=== PATIENT | female | born 1980 | race Two or more races ===

== ENCOUNTER 2019-10-26 17:07 | Emergency (ER) ==
[~2019-10-26] VITALS: Ht 162.6 cm; Wt 85.9 kg
[~2019-10-26 17:07] MED LIST: CHOL10002 PO; DICY20TA3 PO; GLYB2.5T2 PO; GLYB5TAB3 PO; HYDR-3240 PO; HYDR-3241 PO; HYOS0.1268 PO; LEVO112T4 PO; LEVO25TA4 PO; ONDA4TAB13 SL; PANT40GR PO; PANT40TA5 PO; PREN1TAB56 PO; SUMA50TA4 PO; VILA40TA PO
[2019-10-26 17:43] LABS: BASOPHILS # (AUTO) 0.04 x10^3/uL (0-0.1); BASOPHILS % (AUTO) 0 % (0-1); EOSINOPHILS # (AUTO) 0.28 x10^3/uL (0-0.4); EOSINOPHILS % (AUTO) 4 % (1-7); LYMPHOCYTES # (AUTO) 3.31 x10^3/uL (1-3.4); LYMPHOCYTES % (AUTO) 42 % (22-44); MD NO; MEAN CORPUSCULAR HEMOGLOBIN 33.5 pg (27.0-34.8); MEAN CORPUSCULAR HGB CONC 33.1 g/dL (32.4-35.8); MEAN CORPUSCULAR VOLUME 101.3 fL (80-100); MEAN PLATELET VOLUME 8.9 fL (7.4-10.4); MONOCYTES # (AUTO) 0.37 x10^3/uL (0.2-0.8); MONOCYTES % (AUTO) 5 % (2-9); NEUTROPHILS % (AUTO) 49 % (42-75); PLATELET COUNT 258 x10^3/uL (130-400); RED BLOOD COUNT 4.33 x10^6/uL (3.82-5.3); RED CELL DISTRIBUTION WIDTH 12.8 % (9.6-15.2)
[2019-10-26 17:53] LABS: ALBUMIN 3.5 g/dL (3.4-5.0); ANION GAP 7 mmol/L (5-15); CALCIUM 8.8 mg/dL (8.5-10.1); CHLORIDE 109 mmol/L (98-107)
--- NOTE | 2019-10-26 17:57 | NUR ---
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 PT TO BR TO ATTEMPT TO PROVIDE URINE SPECIMAN.
[2019-10-26 17:58] LABS: ALANINE AMINOTRANSFERASE 33 U/L (12-78); BILIRUBIN,TOTAL 0.8 mg/dL (0.2-1.0); CREATININE 0.95 mg/dL (0.55-1.02); TOTAL PROTEIN 7.2 g/dL (6.4-8.2)
[2019-10-26 18:00] LABS: ALKALINE PHOSPHATASE 86 U/L (45-117)
--- NOTE | 2019-10-26 18:17 | NUR ---
URINE COLLECTED/SENT TO LAB. PT GIVEN ZOFRAN ODT PER PROTOCOL FOR NASUEA. BP CUFF, PULSE OX IN PLACE.
[2019-10-26] MEDS ORDERED: ONDANSETRON ODT 4 MG ONE (18:20)
[2019-10-26 18:39] LABS: MICROSCOPIC AUTO
[2019-10-26 18:44] LABS: CULTURE INDICATED? YES
[2019-10-26] MEDS ORDERED: PROCHLORPERAZINE 5 MG/ML, 2ML IVPush ONE (19:00)
[2019-10-26] MEDS ORDERED: KETOROLAC 30 MG/1 ML IVPush ONE (19:00)
[2019-10-26] MEDS ORDERED: SODIUM CHLORIDE FLUSH 10ML SYR IVF ONE (19:00)
[2019-10-26] MEDS ORDERED: KETOROLAC 30 MG/1 ML ONE (19:08)
[2019-10-26] MEDS ORDERED: PROCHLORPERAZINE 5 MG/ML, 2ML ONE (19:08)
--- NOTE | 2019-10-26 19:21 | NUR ---
PT WITH PERSISTENT NAUSEA AND ABD PAIN RATED 8/10. IV PLACED, MEDS GIVEN PER ERP ORDER. AWAITING CT. CALL LIGHT WITHIN REACH. VSS.
[2019-10-26] MEDS ORDERED: ONDANSETRON ODT 4 MG PO PRN (19:30)
[2019-10-26] MEDS ORDERED: OMNIPAQUE 350 MG/ML, 100ML BOTTLE ONE (19:41)
--- NOTE | 2019-10-26 20:31 | NUR ---
ALL RESULTS BACK, PT FOR RECHECK.
[2019-10-26 20:34] VITALS: BP 108/55
[2019-11-16] MEDS ORDERED: No Meds at this Time (11:27)
== END 2019-10-26 21:26 | disposition home or self-care (01) ==
LOC: ED 21:10
DX: K56.0 Paralytic ileus (principal); R10.84 Generalized abdominal pain; E11.9 Type 2 diabetes mellitus without complications
CPT/HCPCS: 36415; 74177; 76700; 80053; 81001; 83690; 84703; 85025; 87086; 96374; 96375; 99284; J0780; J1885; Q0162; Q9967

== ENCOUNTER 2019-11-10 10:04 | Outpatient (CLI) | payer OTHER ==
[2019-11-16] MEDS ORDERED: No Meds at this Time (11:27)
== END 2019-11-10 23:59 | disposition home or self-care (01) ==
LOC: STAR 10:04
PROVIDERS: ATTEND Student in an Organized Health Care Education/Training Program
DX: Z02.9 Encounter for administrative examinations, unspecified (principal)

== ENCOUNTER 2019-11-21 06:11 | Day surgery (SDC) | payer OTHER ==
[~2019-11-21] VITALS: Ht 162.6 cm; Wt 87.0 kg
[~2019-11-21 06:11] MED LIST changes: +No Meds at this Time
[2019-11-21] MEDS ORDERED: LACTATED RINGERS 1,000 ML IV SCH (06:18)
[2019-11-21 06:30] VITALS: BP 149/90
[2019-11-21] MEDS ORDERED: BUPIVACAINE/PF-EPI 0.25% 1:200K ONE (06:34)
[2019-11-21] MEDS ORDERED: EPINEPHRINE 1 MG/ML, 1ML ONE (06:35)
[2019-11-21] MEDS ORDERED: BUPIVACAINE/PF 0.5% ONE (06:35)
[2019-11-21] MEDS ORDERED: FENTANYL PF 250 MCG/5ML ONE (06:57)
[2019-11-21] MEDS ORDERED: MIDAZOLAM 1 MG/ML, 2ML ONE (06:57)
[2019-11-21] MEDS ORDERED: SCOPOLAMINE PATCH, 1.5MG PATCH.TD72 TD ONE (07:10)
[2019-11-21 07:18] LABS: HCG UR SG 1.026 (1.003-1.030)
[2019-11-21] MEDS ORDERED: LIDOCAINE 2% 100MG/5ML SYRINGE ONE (07:24)
[2019-11-21] MEDS ORDERED: ACETAMINOPHEN 325 MG TABLET PO PRN (07:30)
[2019-11-21] MEDS ORDERED: LABETALOL 5MG/ML, 20ML IV PRN (07:30)
[2019-11-21] MEDS ORDERED: HYDROmorphone 2 MG/ML, 1ML IVPush PRN (07:30)
[2019-11-21] MEDS ORDERED: OXYcodone 5 MG/5 ML ORAL.SOL UDC PO PRN (07:30)
[2019-11-21] MEDS ORDERED: LORazepam 2 MG/ML, 1ML IVPush PRN (07:30)
[2019-11-21] MEDS ORDERED: DIAZEPAM 5 MG/ML, 2ML IVPush PRN (07:30)
[2019-11-21] MEDS ORDERED: ONDANSETRON ODT 8 MG PO PRN (07:30)
[2019-11-21] MEDS ORDERED: PROMETHAZINE 25 MG/ML, 1ML IV PRN (07:30)
[2019-11-21] MEDS ORDERED: hydrALAzine 20 MG/ML, 1ML IV PRN (07:30)
[2019-11-21] MEDS ORDERED: ONDANSETRON 2MG/ML, 2ML IV PRN (07:30)
[2019-11-21] MEDS ORDERED: PROPOFOL 10 MG/ML, 20ML ONE (07:57)
[2019-11-21] MEDS ORDERED: CEFAZOLIN 1,000 MG ONE (07:57)
[2019-11-21] MEDS ORDERED: ROCURONIUM 10MG/ML,5ML ONE (07:57)
[2019-11-21] MEDS ORDERED: GLYCOPYRROLATE 0.2MG/1ML, 5ML ONE (07:57)
[2019-11-21] MEDS ORDERED: SUCCINYLCHOLINE 20 MG/ML, 10ML ONE (07:57)
[2019-11-21] MEDS ORDERED: NEOSTIGMINE 1 MG/ML, 10ML ONE (07:57)
[2019-11-21] MEDS ORDERED: SUGAMMADEX 200 MG/2 ML IVPush ONE (07:57)
[2019-11-21] MEDS ORDERED: ONDANSETRON 2MG/ML, 2ML ONE (07:57)
[2019-11-21] MEDS ORDERED: DEXAMETHASONE 4 MG/ML, 1ML ONE (07:57)
[2019-11-21] MEDS ORDERED: OXYcodone 5 MG/5 ML ORAL.SOL UDC ONE (08:16)
[2019-11-21] MEDS ORDERED: PROMETHAZINE 25 MG/ML, 1ML ONE (08:16)
[2019-11-21] MEDS ORDERED: FENTANYL PF 100 MCG/2ML ONE (08:16)
[2019-11-21] MEDS ORDERED: ACETAMINOPHEN 650 MG/20.3 ML UDC ONE (08:16)
[2019-11-21] MEDS: FENTANYL PF 100 MCG/2ML IV PRN ×4 (08:22→08:47)
[2019-11-21] MEDS ORDERED: KETOROLAC 30 MG/1 ML ONE (10:38)
[2019-11-21] MEDS ORDERED: KETOROLAC 30 MG/1 ML IVPush PRN (11:00)
== END 2019-11-21 11:10 | disposition home or self-care (01) ==
LOC: OR 06:11
PROVIDERS: ATTEND Student in an Organized Health Care Education/Training Program
DX: K56.1 Intussusception (principal); G89.4 Chronic pain syndrome; E03.9 Hypothyroidism, unspecified; F17.210 Nicotine dependence, cigarettes, uncomplicated; Z90.49 Acquired absence of other specified parts of digestive tract; Z98.890 Other specified postprocedural states; Z72.89 Other problems related to lifestyle
CPT/HCPCS: 49320; 81025; J0171; J0330; J0690; J1100; J1885; J2250; J2405; J2550; J2704; J3010; J7120; J2710